=== PATIENT | female | born 1995 | race Caucasian/White ===

== ENCOUNTER 2020-07-07 03:48 | Emergency (ER) | payer OTHER ==
[~2020-07-07] VITALS: Ht 157.5 cm; Wt 62.1 kg
--- NOTE | 2020-07-07 04:04 | PHYS DOC ---
Adult General HPI HPI Patient is a 24-year-old female, G4, P3 at 25 weeks who presents with dysuria. Patient states she has had dysuria for several days and has been taking [id number] Azo which was recommended by her fleecer. States it has not really been helping. States over the last day she has had some mild nausea but no vomiting and right flank pain, dull in nature, 5 out of 10 that is come on over the last day or so. Denies any fevers, chest pain, shortness of breath, vomiting, hematuria or blood in the stool. Denies any personal or family history of kidney stones. States she has felt the baby move and has had no vaginal bleeding, discharge or pain. States that she did have a yeast infection recently that was treated with topical medications that seems to have resolved. (ARACELIS JOEL MD) Review of Systems Review of Systems Review of systems otherwise unremarkable except for noted in HPI (ARACELIS JOEL MD) Physical Exam Physical Exam Constitutional: Well developed, well nourished, no acute distress, non-toxic appearance. [] HENT: Normocephalic, atraumatic, bilateral external ears normal, oropharynx moist, no oral exudates, nose normal. [] Eyes: PERRLA, EOMI, conjunctiva normal, no discharge. [] Neck: Normal range of motion, no tenderness, supple, no stridor. [] Cardiovascular:Heart rate regular rhythm, no murmur [] Lungs & Thorax: Bilateral breath sounds clear to auscultation [] Abdomen: Bowel sounds normal, soft, no tenderness, no masses, no pulsatile masses. [] Fundus felt above the umbilicus with no tenderness. [place] motion of baby. Doppler with heart rate of 134. Skin: Warm, dry, no erythema, no rash. [] Back: No tenderness, no CVA tenderness. [] Extremities: No tenderness, no cyanosis, no clubbing, ROM intact, no edema. [] Neurologic: Alert and oriented X 3, normal motor function, normal sensory function, no focal deficits noted. [] Psychologic: Affect normal, judgement normal, mood normal. [] (ARACELIS JOEL MD) Current Patient Data Vital Signs Vital Signs Date Time Temp Pulse Resp B/P (MAP) Pulse Ox O2 Delivery O2 Flow Rate FiO2 07/07/20 06:10 98 20 111/70 (84) 100 Room Air 07/07/20 04:00 97.9 92 20 121/75 (90) 98 Room Air 07/07/20 03:55 97.9 92 20 121/75 (90) 98 Room Air Lab Results Laboratory Tests Test 07/07/20 04:15 07/07/20 05:25 Urine Collection Type Void Urine Color [place] Urine Clarity Cloudy Urine pH 5.0 Urine Specific [place] 1.020 Urine Protein 100 mg/dl Urine Glucose (UA) 100 mg/dL Urine Ketones (Stick) Neg mg/dL Urine Blood Mod Urine Nitrite Pos Urine Bilirubin Neg Urine Urobilinogen Dipstick 0.2 mg/dL Urine Leukocyte Esterase Small Urine RBC 11-20 /HPF Urine WBC 11-20 /HPF Urine Squamous Epithelial Cells Few /LPF Urine Bacteria Mod /HPF Urine Mucus Slight /LPF White Blood Count 12.5 x10^3/uL Red Blood Count 3.70 x10^6/uL Hemoglobin 11.8 g/dL Hematocrit 35.2 % Mean Corpuscular Volume 95 fL Mean Corpuscular Hemoglobin 32 pg Mean Corpuscular Hemoglobin Concent 34 g/dL Red Cell Distribution Width 12.9 % Platelet Count 242 x10^3/uL Neutrophils (%) (Auto) 86 % Lymphocytes (%) (Auto) 8 % Monocytes (%) (Auto) 5 % Eosinophils (%) (Auto) 0 % Basophils (%) (Auto) 0 % Neutrophils # (Auto) 10.8 x10^3uL Lymphocytes # (Auto) 1.0 x10^3/uL Monocytes # (Auto) 0.6 x10^3/uL Eosinophils # (Auto) 0.1 x10^3/uL Basophils # (Auto) 0.0 x10^3/uL Sodium Level 136 mmol/L Potassium Level 3.4 mmol/L Chloride Level 102 mmol/L Carbon Dioxide Level 24 mmol/L Anion Gap 10 Blood Urea Nitrogen 7 mg/dL Creatinine 0.5 mg/dL Estimated GFR (Cockcroft-Gault) 151.6 Glucose Level 115 mg/dL Calcium Level 8.6 mg/dL Current Medications Medications (Trade) Dose Ordered Sig/Meryl Route PRN Reason Start Time Stop Time Status Last Admin Dose Admin Ondansetron HCl (Zofran Odt) 4 mg 1X ONCE PO 07/07/20 04:45 07/07/20 04:46 DC 07/07/20 04:50 Acetaminophen (Tylenol) 1,000 mg 1X ONCE PO 07/07/20 04:45 07/07/20 04:46 DC 07/07/20 04:50 Lactated Ringer's 1,000 ml @ 1,000 mls/hr 1X ONCE IV 07/07/20 05:15 07/07/20 06:14 DC 07/07/20 05:32 Ceftriaxone Sodium 1 gm/ Sodium Chloride 50 ml @ 100 mls/hr 1X ONCE IV 07/07/20 05:15 07/07/20 05:44 DC 07/07/20 05:32 Sodium Chloride 50 ml @ As Directed STK-MED ONCE .ROUTE 07/07/20 05:18 07/07/20 05:18 DC Ceftriaxone Sodium (Rocephin) 1 gm STK-MED ONCE .ROUTE 07/07/20 05:18 07/07/20 05:18 DC (DEXTER RIVERO DO) EKG EKG [] (ARACELIS JOEL MD) Radiology/Procedures Radiology/Procedures [] (ARACELIS JOEL MD) Heart Score Risk Factors: Risk Factors: DM, Current or recent (<one month) smoker, HTN, HLP, family history of CAD, obesity. Risk Scores: Risk Factors: DM, Current or recent (<one month) smoker, HTN, HLP, family history of CAD, obesity. (ARACELIS JOEL MD) Course & Med Decision Making Course & Med Decision Making Patient is a 24-year-old female who presents with 5 days of dysuria Vital signs not concerning. Physical exam noted above. Patient given Zofran for nausea. Started on IV fluid resuscitation. Urinalysis with bacteria, blood and nitrite positive. Patient treated with ceftriaxone. Given patient's , and differential of pyelonephritis versus kidney stone with infection it was recommended the patient that she be transferred to [facility] to be evaluated and treated by the [facility] team. Mom verbalized understanding and agreed with plan of transfer. Other labs pending at morning check out to day team. Day team will be taking over patient's care. [] (ARACELIS JOEL MD) Course & Med Decision Making I obtained patient signout from off going physician and reviewed ER work-up so far. Patient accepted at [facility] for transfer, appropriate antibiotics administered while in our ER setting. Patient had no complaints or issues prior to EMS transportation to [facility] for admission (DEXTER RIVERO DO) Dragon Disclaimer Dragon Disclaimer This electronic medical record was generated, in whole or in part, using a voice recognition dictation system. (ARACELIS JOEL MD) Departure Departure: Impression: Primary Impression: Pyelonephritis complicating Disposition: 02 DC/TRF OTHER SHORT TERM HOS ([facility]) Admitting Physician: Other (Dr. Barone) (DEXTER RIVERO DO) Condition: STABLE Referrals: PCP,NO (PCP) ARACELIS JOEL MD Jul 07, 2020 04:04 DEXTER RIVERO DO Jul 07, 2020 09:21
[2020-07-07] MEDS ORDERED: ONDANSETRON ODT 4 MG TAB.RAPDIS PO ONE (04:45)
[2020-07-07] MEDS ORDERED: ACETAMINOPHEN 500 MG TABLET PO ONE (04:45)
[2020-07-07 04:56] LABS: COLOR,URINE ORANGE
[2020-07-07 04:57] LABS: BACTERIA,URINE MOD /HPF (0-FEW); BILIRUBIN,URINE NEG (NEG); CLARITY,URINE CLOUDY; GLUCOSE,URINE 100 mg/dL (NEG); NITRITE,URINE POS (NEG); SQUAMOUS EPITHELIAL CELL,UR FEW /LPF; UROBILINOGEN,URINE 0.2 mg/dL (0.2 mg/dL)
[2020-07-07] MEDS ORDERED: IV RINGERS SOLUTION,LACTATED 1,000 ML IV ONE (05:15)
[2020-07-07] MEDS ORDERED: IV NORMAL SALINE 50ML 50 ML ONE (05:18)
[2020-07-07] MEDS ORDERED: cefTRIAXone SODIUM 1 GM VIAL ONE (05:18)
[2020-07-07 06:06] LABS: CALCIUM 8.6 mg/dL (8.5-10.1); CREATININE 0.5 mg/dL (0.6-1.0); GFR 151.6; POTASSIUM 3.4 mmol/L (3.5-5.1)
[2020-07-07 06:10] VITALS: BP 111/70
[2020-07-07 06:12] LABS: BASO % 0 % (0-3); EOS # 0.1 x10^3/uL (0.0-0.7); EOS % 0 % (0-3); HEMATOCRIT 35.2 % (36.0-47.0); HEMOGLOBIN 11.8 g/dL (12.0-15.5); LYMPH % 8 % (24-48); MEAN CORPUSCULAR HEMOGLOBIN 32 pg (25-35); MEAN CORPUSCULAR HGB CONC 34 g/dL (31-37); MEAN CORPUSCULAR VOLUME 95 fL (79-100); MONO # 0.6 x10^3/uL (0.0-1.1); MONO % 5 % (0-9); NEUT # 10.8 x10^3uL (1.8-7.7); NEUT % 86 % (31-73); PLATELET COUNT 242 x10^3/uL (140-400); RED CELL DISTRIBUTION WIDTH 12.9 % (11.5-14.5); WHITE BLOOD COUNT 12.5 x10^3/uL (4.0-11.0)
== END 2020-07-07 08:45 | disposition short-term general hospital (02) ==
LOC: ER 03:48
DX: O23.02 Infections of kidney in pregnancy, second trimester (principal); Z3A.25 25 weeks gestation of pregnancy
CPT/HCPCS: 36415; 80048; 81001; 85025; 87086; 96374; 99285; J0696; J7120; Q0162